=== PATIENT | female | born 1995 | race Caucasian/White ===

== ENCOUNTER 2018-10-03 09:29 | Emergency (ER) | payer OTHER ==
[2018-10-03 09:35] VITALS: RESP 18; TEMP 97.4
[2018-10-03] MEDS ORDERED: ONDANSETRON 4 MG/2 ML VIAL IVP STA (09:48)
[2018-10-03] MEDS ORDERED: SODIUM CHLORIDE 0.9% 1,000 ML IV STA (09:48)
[2018-10-03] MEDS ORDERED: KETOROLAC 30 MG/ML 1 ML VIAL IVP STA (09:48)
--- NOTE | 2018-10-03 10:00 | ED ---
General Adult HPI - General Chief complaint: Back Pain/Injury Stated complaint: back pain, nausea, pain in rt leg Time Seen by Provider: 10/03/18 09:37 Source: patient, RN notes reviewed Mode of arrival: ambulatory Limitations: no limitations - History of Present Illness Initial comments: The patient 22-year-old female presented to the emergency room today with chief complaint of right-sided lower back pain over the last 3 days. She does not that she's had some numbness tingling sensation going down into the thighs both on left right. She denies bowel or bladder incontinence retention. Denies any saddle anesthesia. Patient does admit that she has had some abdominal discomfort on the right side this morning and felt nauseous when she was getting ready this morning. She has mid to an episode of vomiting. Denies any signs of blood. Patient admits to history scoliosis is had some back problems in the past. States this does feel a little bit different. Pain is located on the right side of the lower back with some radiation around to the abdomen that started swallowing. Patient denies any other complaints or symptoms at this time. Patient denies any recent fever, chills, shortness of breath, chest pain, numbness or tingling, dysuria or hematuria, constipation or diarrhea, headaches or visual changes, or any other complaints. - Related Data Home Medications Medication Instructions Recorded Confirmed Acetaminophen [Tylenol Extra 500 mg PO Q6H PRN 10/03/18 10/03/18 Strength] Previous Rx's Medication Instructions Recorded Ibuprofen [Motrin] 800 mg PO Q6HR #30 tab 10/03/18 Ondansetron Odt [Zofran ODT] 4 mg PO Q8HR PRN #20 tab 10/03/18 Tamsulosin [Flomax] 0.4 mg PO DAILY #10 cap 10/03/18 Allergies Allergy/AdvReac Type Severity Reaction Status Date / Time No Known Allergies Allergy Verified 10/03/18 09:43 Review of Systems ROS Statement: Those systems with pertinent positive or pertinent negative responses have been documented in the HPI. ROS Other: All systems not noted in ROS Statement are negative. Past Medical History Past Medical History: No Reported History History of Any Multi-Drug Resistant Organisms: None Reported Past Surgical History: Back Surgery Past Psychological History: No Psychological Hx Reported Smoking Status: Never smoker Past Alcohol Use History: None Reported Past Drug Use History: None Reported General Exam - General Exam Comments Initial Comments: General: The patient is awake and alert, in no distress, and does not appear acutely ill. Eye: There is normal conjunctiva bilaterally. No signs of icterus. Ears, nose, mouth and throat: There are moist mucous membranes and no oral lesions. Neck: The neck is supple, there is no tenderness or JVD. Cardiovascular: There is a regular rate and rhythm. No murmur, rub or gallop is appreciated. Respiratory: Lungs are clear to auscultation, respirations are non-labored, breath sounds are equal. No wheezes, stridor, rales, or rhonchi. Gastrointestinal: Abdomen soft on palpation. Mild tenderness right lower shirley drant. No rebound, guarding or CVA tenderness. Musculoskeletal: Normal ROM, no tenderness. Strength 5/5. Sensation intact. Pulses equal bilaterally 2+. Neurological: A&O x 3. CN II-XII intact, There are no obvious motor or sensory deficits. Coordination appears grossly intact. Speech is normal. Skin: Skin is warm and dry and no rashes or lesions are noted. Psychiatric: Cooperative, appropriate mood & affect, normal judgment. Limitations: no limitations Course Vital Signs 10/03/18 09:32 Temperature 97.4 F L Pulse Rate 108 H Respiratory 18 Rate Blood Pressure 125/76 O2 Sat by Pulse 100 Oximetry Medical Decision Making - Medical Decision Making Patient reexamined at this time shows no signs of distress. She is resting comfortable. Does admit to improvement after medications given here in emergency room. Patient's labs are been reviewed. Urinalysis does show hematuria. No sign of infection. Patient's CT of the abdomen and pelvis is reviewed and does show 5 mm stone right UVJ. Results were discussed with the patient. Patient at this time is doing well. No fever. Will be discharged home with Flomax, pain medication, nausea medication for symptoms. She is advised following up with the family physician or urologist over the next 2 days. Advised to return here to emergency room if any symptoms increase or worsen. Patient states understanding and is in agreement. - Lab Data Result diagrams: 10/03/18 09:54 10/03/18 09:54 Lab Results 10/03/18 10/03/18 10/03/18 Range/Units 09:54 09:54 10:45 WBC 10.1 (3.8-10.6) k/uL RBC 4.44 (3.80-5.40) m/uL Hgb 13.4 (11.4-16.0) gm/dL Hct 39.3 (34.0-46.0) % MCV 88.7 (80.0-100.0) fL MCH 30.1 (25.0-35.0) pg MCHC 34.0 (31.0-37.0) g/dL RDW 12.6 (11.5-15.5) % Plt Count 289 (150-450) k/uL Neutrophils % 75 % Lymphocytes % 17 % Monocytes % 6 % Eosinophils % 1 % Basophils % 0 % Neutrophils # 7.6 (1.3-7.7) k/uL Lymphocytes # 1.7 (1.0-4.8) k/uL Monocytes # 0.6 (0-1.0) k/uL Eosinophils # 0.1 (0-0.7) k/uL Basophils # 0.0 (0-0.2) k/uL Sodium 141 (137-145) mmol/L Potassium 3.7 (3.5-5.1) mmol/L Chloride 111 H (98-107) mmol/L Carbon Dioxide 20 L (22-30) mmol/L Anion Gap 10 mmol/L BUN 13 (7-17) mg/dL Creatinine 0.55 (0.52-1.04) mg/dL Est GFR (CKD-EPI)AfAm >90 (>60 ml/min/1.73 sqM) Est GFR (CKD-EPI)NonAf >90 (>60 ml/min/1.73 sqM) Glucose 94 (74-99) mg/dL Calcium 9.6 (8.4-10.2) mg/dL Total Bilirubin 0.5 (0.2-1.3) mg/dL AST 22 (14-36) U/L ALT 39 (9-52) U/L Alkaline Phosphatase 106 (38-126) U/L Total Protein 7.4 (6.3-8.2) g/dL Albumin 4.6 (3.5-5.0) g/dL Amylase 71 (30-110) U/L Lipase 50 (23-300) U/L Urine Color Urine Appearance (Clear) Urine pH (5.0-8.0) Ur Specific [place] (1.001-1.035) Urine Protein (Negative) Urine Glucose (UA) (Negative) Urine Ketones (Negative) Urine Blood (Negative) Urine Nitrite (Negative) Urine Bilirubin (Negative) Urine Urobilinogen (<2.0) mg/dL Ur Leukocyte Esterase (Negative) Urine RBC (0-5) /hpf Urine WBC (0-5) /hpf Ur Squamous Epith Cells (0-4) /hpf Urine Mucus (None) /hpf Urine HCG, Qual Not Detected (Not Detectd) 10/03/18 Range/Units 10:45 WBC (3.8-10.6) k/uL RBC (3.80-5.40) m/uL Hgb (11.4-16.0) gm/dL Hct (34.0-46.0) % MCV (80.0-100.0) fL MCH (25.0-35.0) pg MCHC (31.0-37.0) g/dL RDW (11.5-15.5) % Plt Count (150-450) k/uL Neutrophils % % Lymphocytes % % Monocytes % % Eosinophils % % Basophils % % Neutrophils # (1.3-7.7) k/uL Lymphocytes # (1.0-4.8) k/uL Monocytes # (0-1.0) k/uL Eosinophils # (0-0.7) k/uL Basophils # (0-0.2) k/uL Sodium (137-145) mmol/L Potassium (3.5-5.1) mmol/L Chloride (98-107) mmol/L Carbon Dioxide (22-30) mmol/L Anion Gap mmol/L BUN (7-17) mg/dL Creatinine (0.52-1.04) mg/dL Est GFR (CKD-EPI)AfAm (>60 ml/min/1.73 sqM) Est GFR (CKD-EPI)NonAf (>60 ml/min/1.73 sqM) Glucose (74-99) mg/dL Calcium (8.4-10.2) mg/dL Total Bilirubin (0.2-1.3) mg/dL AST (14-36) U/L ALT (9-52) U/L Alkaline Phosphatase (38-126) U/L Total Protein (6.3-8.2) g/dL Albumin (3.5-5.0) g/dL Amylase (30-110) U/L Lipase (23-300) U/L Urine Color Yellow Urine Appearance Clear (Clear) Urine pH 6.5 (5.0-8.0) Ur Specific [place] 1.017 (1.001-1.035) Urine Protein Negative (Negative) Urine Glucose (UA) Negative (Negative) Urine Ketones 2+ H (Negative) Urine Blood Moderate H (Negative) Urine Nitrite Negative (Negative) Urine Bilirubin Negative (Negative) Urine Urobilinogen <2.0 (<2.0) mg/dL Ur Leukocyte Esterase Negative (Negative) Urine RBC 163 H (0-5) /hpf Urine WBC 2 (0-5) /hpf Ur Squamous Epith Cells 2 (0-4) /hpf Urine Mucus Few H (None) /hpf Urine HCG, Qual (Not Detectd) Disposition Clinical Impression: Kidney stone on right side Disposition: HOME SELF-CARE Condition: Good Instructions (If sedation given, give patient instructions): Kidney Stones (ED) Additional Instructions: Please use medication as discussed. Please follow-up with urologist/family doctor in the next 2 days of symptoms have not improved. Please return to emergency room if the symptoms increase or worsen or for any other concerns. Prescriptions: Tamsulosin [Flomax] 0.4 mg PO DAILY #10 cap Ibuprofen [Motrin] 800 mg PO Q6HR #30 tab Ondansetron Odt [Zofran ODT] 4 mg PO Q8HR PRN #20 tab PRN Reason: Nausea Is patient prescribed a controlled substance at d/c from ED?: No Referrals: None,Stated [Primary Care Provider] - 1-2 days Fede Dumas MD [STAFF PHYSICIAN] - 1-2 days Time of Disposition: 12:32
[2018-10-03 10:03] LABS: Basophils % (A) 0 %; Eosinophils # (A) 0.1 k/uL (0-0.7); Eosinophils % (A) 1 %; HCT 39.3 % (34.0-46.0); HGB 13.4 gm/dL (11.4-16.0); Lymphocytes # (A) 1.7 k/uL (1.0-4.8); Lymphocytes % (A) 17 %; MCH 30.1 pg (25.0-35.0); MCV 88.7 fL (80.0-100.0); Mean Platelet Volume 7.4; Monocytes # (A) 0.6 k/uL (0-1.0); Monocytes % (A) 6 %; Neutrophils # (A) 7.6 k/uL (1.3-7.7); Neutrophils % (A) 75 %; Platelet Count 289 k/uL (150-450); RBC 4.44 m/uL (3.80-5.40); RDW 12.6 % (11.5-15.5); WBC 10.1 k/uL (3.8-10.6)
[2018-10-03 10:21] LABS: ALT 39 U/L (9-52); AST 22 U/L (14-36); Albumin 4.6 g/dL (3.5-5.0); Alkaline Phosphatase 106 U/L (38-126); Amylase 71 U/L (30-110); Anion Gap 10 mmol/L; Blood Urea Nitrogen 13 mg/dL (7-17); Calcium 9.6 mg/dL (8.4-10.2); Carbon Dioxide 20 mmol/L (22-30); Chloride 111 mmol/L (98-107); Glucose 94 mg/dL (74-99); Lipase 50 U/L (23-300); Potassium 3.7 mmol/L (3.5-5.1); Sodium 141 mmol/L (137-145); Total Bilirubin 0.5 mg/dL (0.2-1.3); Total Protein 7.4 g/dL (6.3-8.2)
[2018-10-03 11:07] LABS: Appearance,Urine Clear (Clear); Bilirubin,Urine Negative (Negative); Blood,Urine Moderate (Negative); Color,Urine Yellow; Glucose,Urine (UA) Negative (Negative); Ketones,Urine 2+ (Negative); Leukocyte Esterase,Urine Negative (Negative); Mucus,Urine Few /hpf; Nitrite,Urine Negative (Negative); PH, Urine 6.5 (5.0-8.0); Protein,Urine Negative (Negative); RBC,Urine 163 /hpf (0-5); Specific Gravity,Urine 1.017 (1.001-1.035); Squamous Epithelial Cell,Urine 2 /hpf (0-4); Urobilinogen,Urine <2.0 mg/dL (<2.0); WBC,Urine 2 /hpf (0-5)
--- NOTE | 2018-10-03 11:26 | XR ---
EXAMINATION TYPE: XR KUB DATE OF EXAM: 10/03/2018 CLINICAL DATA: 22 year-old female with abdominal pain, PHH COMPARISON: None FINDINGS: Lung bases are clear. No evidence for free intraperitoneal air. No dilated small bowel or air-fluid levels. Scattered air and stool seen throughout the colon extendi ng distally into the rectum. Mild overall stool burden. Subtle 3 mm calcification in the right side of the pelvis. Thoracolumbar fusion hardware is present. IMPRESSION: 1. No evidence of bowel obstruction or free intraperitoneal air. 2. Subtle 3 mm calcification in the right side of the pelvis. Finding is equivocal for phlebolith eh jamila distal ureteral calculus. Correlate for any renal colic.
--- NOTE | 2018-10-03 12:23 | CT ---
EXAMINATION TYPE: CT abdomen pelvis wo con DATE OF EXAM: 10/03/2018 COMPARISON: Radiograph same day HISTORY: 22-year-old female Rt flank pain, hematuria CT DLP: 280.1 mGycm. Automated exposure control for dose reduction was used. TECHNIQUE: Contiguous axial scanning of the abdomen and pelvis without IV contrast. Coronal and sagit roopa reconstructions performed. FINDINGS: The superior aspect of the liver and spleen are excluded. Extensive metal artifact from the patient's thoracospinal fusion hardware. A few scattered punctate calcifications are present on the right measuring up to 3 mm. 2 punctate 1 t o 2 mm calculi are present on the left There is very mild asymmetric pelvocaliectasis on the right. Detailed assessment limited due to exten sive metal artifact at the level of the kidneys. No obvious abnormality of the liver, gallbladder, adrenal glands, spleen, or pancreas by noncontrast CT and further limitations due to extensive metal hardware artifact. No dilated small bowel, free fluid, or free air. Normal appendix. No significant stool burden. Mild circumferential bladder wall thickening. Uterus and ovaries are visualized with follicular change. There is a 1.6 cm dominant functional cyst in the left ovary. Mild to moderate cul-de-sac free fluid likely physiologic. There is a 5 mm calculus at the right UVJ. Bones: Thoracolumbar fusion hardware extending down to the L2 level. IMPRESSION: 1. A 5 mm calculus at the right UVJ. Suspect slight obstructive uropathy given asymmetric prominence to the right collecting system. 2. Extensive metal hardware artifact limiting visualization the kidneys. Scattered punctate 1 to 3 mm right lateral nonobstructive renal calculi are present. 3. Circumferential bladder wall thickening. Correlate to exclude cystitis.
[2018-10-03 12:45] VITALS: BP 120/76; PULSE 105
== END 2018-10-03 12:35 | disposition home or self-care (01) ==
LOC: EC 09:29
DX: N20.2 Calculus of kidney with calculus of ureter (principal); Z87.39 Personal history of other diseases of the musculoskeletal system and connective tissue; Z98.890 Other specified postprocedural states
CPT/HCPCS: 36415; 80053; 82150; 83690; 85025; 81001; 81025; 74018; 74176; 99284; 96374; 96375; 96361; J2405; J1885

== ENCOUNTER 2021-08-27 16:33 | Emergency (ER) | payer OTHER ==
[2021-08-27 17:03] VITALS: RESP 18
[2021-08-27] MEDS ORDERED: SODIUM CHLORIDE 0.9% 1,000 ML IV STA (19:10)
[2021-08-27] MEDS ORDERED: ONDANSETRON 4 MG/2 ML VIAL IVP STA (19:10)
--- NOTE | 2021-08-27 19:15 | ED ---
General Adult HPI - General Chief complaint: Nausea/Vomiting/Diarrhea Stated complaint: Abd pain/Cramps Time Seen by Provider: 08/27/21 18:41 Source: patient, RN notes reviewed Mode of arrival: wheelchair Limitations: no limitations - History of Present Illness Initial comments: 21-year-old female presents to the emergency Department with complaints of nausea, vomiting and abdominal pain, onset 1 hour prior to arrival. Patient states abdominal pain spreads across her entire abdomen and wraps around to the left flank. States she is currently on her menstrual period, but is not experiencing any cramping or excessive bleeding. Has had a few episodes of diarrhea today. She did not take anything to treat her symptoms prior to arrival. Denies any known sick contacts. No fever, chills, headache, chest pain, shortness of breath, constipation, dysuria, or hematuria. - Related Data Previous Rx's Medication Instructions Recorded Ibuprofen [Motrin] 600 mg PO Q8HR PRN #20 tab 08/27/21 Ondansetron Odt [Zofran Odt] 4 mg PO Q8HR PRN #10 tab 08/27/21 Tamsulosin [Flomax] 0.4 mg PO DAILY #7 cap 08/27/21 Allergies Allergy/AdvReac Type Severity Reaction Status Date / Time No Known Allergies Allergy Verified 08/27/21 21:39 Review of Systems ROS Statement: Those systems with pertinent positive or pertinent negative responses have been documented in the HPI. ROS Other: All systems not noted in ROS Statement are negative. Past Medical History Past Medical History: No Reported History History of Any Multi-Drug Resistant Organisms: None Reported Past Surgical History: Back Surgery Past Psychological History: No Psychological Hx Reported Smoking Status: Never smoker Past Alcohol Use History: None Reported Past Drug Use History: None Reported General Exam Limitations: no limitations (Well-developed, very slender female in no acute distress. Initial temperature 98.2, pulse 106, respirations 18, blood pressure 107/75, pulse ox 100% on room air.) General appearance: alert, in no apparent distress Eye exam: Present: normal appearance, PERRL, EOMI. Absent: scleral icterus, conjunctival injection ENT exam: Present: normal exam, normal oropharynx, mucous membranes moist Neck exam: Present: normal inspection, full ROM. Absent: tenderness, lymphadenopathy Respiratory exam: Present: normal lung sounds bilaterally. Absent: respiratory distress, wheezes, rales, rhonchi, stridor Cardiovascular Exam: Present: normal rhythm, tachycardia, normal heart sounds GI/Abdominal exam: Present: soft, tenderness (Diffuse lower abdominal tenderness, left side worse than right), normal bowel sounds. Absent: distended, guarding, rebound, rigid Back exam: Present: CVA tenderness (L) Neurological exam: Present: alert, oriented X3 Psychiatric exam: Present: normal affect, normal mood Skin exam: Present: warm, dry, intact, normal color Course Vital Signs 08/27/21 08/27/21 16:58 22:15 Temperature 98.2 F 99.3 F Pulse Rate 106 H 110 H Respiratory 18 18 Rate Blood Pressure 107/75 139/65 O2 Sat by Pulse 100 98 Oximetry - Reevaluation(s) Reevaluation #1: 08/27/21 20:30 Upon reevaluation, patient is resting more comfortably. Pain is significantly improved and nausea has resolved. Discussed CT of the abdomen and pelvis with patient and spouse, they are agreeable with this plan of care. Medical Decision Making - Medical Decision Making 25-year-old female with a past medical history of kidney stones presents to the emergency Department with complaints of abdominal pain radiating to the left flank. Upon exam, patient is alert and oriented and able to answer questions appropriately. She is resting calmly in the bed at this time. She is noted to have vomited recently. Complains of significant lower abdominal discomfort that wraps around to the left flank. Denies any hematuria. States she is currently on her menstrual period. Patient was given IV fluids, pain medicine, antinausea medicine with significant improvement. Laboratory studies were reviewed showing leukocytosis which is likely due to vomiting. Her lactic acid is 2.1 and was given a bolus of fluid. Urinalysis shows presence of moderate amount of blood and 2+ ketones; no evidence of infection. CT of the abdomen and pelvis was obtained showing the presence of bilateral renal calculi, with a 4 mm stone on the left side causing mild hydronephrosis. Patient's pain is controlled and she is tolerating oral intake. She will be discharged home to follow up on an outpatient basis. Prescribed Zofran, Motrin, and Flomax. She is provided with a strainer and instructed to follow up with PCP and/or urology. Instructed to focus on hydration including electrolyte solution. Return parameters were discussed in detail. Patient verbalizes understanding and agrees with this plan. This patient's care was discussed with my attending Dr. George. - Lab Data Result diagrams: 08/27/21 19:16 08/27/21 19:16 Lab Results 08/27/21 08/27/21 08/27/21 Range/Units 19:16 19:16 19:16 WBC 16.9 H (3.8-10.6) k/uL RBC 4.30 (3.80-5.40) m/uL Hgb 13.9 (11.4-16.0) gm/dL Hct 40.8 (34.0-46.0) % MCV 94.8 (80.0-100.0) fL MCH 32.3 (25.0-35.0) pg MCHC 34.1 (31.0-37.0) g/dL RDW 12.1 (11.5-15.5) % Plt Count 308 (150-450) k/uL MPV 9.2 Neutrophils % 89 % Lymphocytes % 6 % Monocytes % 4 % Eosinophils % 0 % Basophils % 0 % Neutrophils # 15.1 H (1.3-7.7) k/uL Lymphocytes # 1.0 (1.0-4.8) k/uL Monocytes # 0.6 (0-1.0) k/uL Eosinophils # 0.0 (0-0.7) k/uL Basophils # 0.1 (0-0.2) k/uL Sodium (137-145) mmol/L Potassium (3.5-5.1) mmol/L Chloride (98-107) mmol/L Carbon Dioxide (22-30) mmol/L Anion Gap mmol/L BUN (7-17) mg/dL Creatinine (0.52-1.04) mg/dL Est GFR (CKD-EPI)AfAm (>60 ml/min/1.73 sqM) Est GFR (CKD-EPI)NonAf (>60 ml/min/1.73 sqM) Glucose (74-99) mg/dL Lactic Ac Sepsis Rflx Plasma Lactic Acid Jones (0.7-2.0) mmol/L Calcium (8.4-10.2) mg/dL Total Bilirubin (0.2-1.3) mg/dL AST (14-36) U/L ALT (4-34) U/L Alkaline Phosphatase (38-126) U/L Total Protein (6.3-8.2) g/dL Albumin (3.5-5.0) g/dL Urine Color Yellow Urine Appearance Clear (Clear) Urine pH 7.5 (5.0-8.0) Ur Specific [place] 1.022 (1.001-1.035) Urine Protein Trace H (Negative) Urine Glucose (UA) Negative (Negative) Urine Ketones 2+ H (Negative) Urine Blood Moderate H (Negative) Urine Nitrite Negative (Negative) Urine Bilirubin Negative (Negative) Urine Urobilinogen <2.0 (<2.0) mg/dL Ur Leukocyte Esterase Negative (Negative) Urine RBC 133 H (0-5) /hpf Urine WBC 2 (0-5) /hpf Ur Squamous Epith Cells 2 (0-4) /hpf Urine Mucus Few H (None) /hpf Urine HCG, Qual Not Detected (Not Detectd) 08/27/21 08/27/21 08/27/21 Range/Units 19:16 19:16 19:50 WBC (3.8-10.6) k/uL RBC (3.80-5.40) m/uL Hgb (11.4-16.0) gm/dL Hct (34.0-46.0) % MCV (80.0-100.0) fL MCH (25.0-35.0) pg MCHC (31.0-37.0) g/dL RDW (11.5-15.5) % Plt Count (150-450) k/uL MPV Neutrophils % % Lymphocytes % % Monocytes % % Eosinophils % % Basophils % % Neutrophils # (1.3-7.7) k/uL Lymphocytes # (1.0-4.8) k/uL Monocytes # (0-1.0) k/uL Eosinophils # (0-0.7) k/uL Basophils # (0-0.2) k/uL Sodium 138 (137-145) mmol/L Potassium 4.2 (3.5-5.1) mmol/L Chloride 105 (98-107) mmol/L Carbon Dioxide 21 L (22-30) mmol/L Anion Gap 12 mmol/L BUN 15 (7-17) mg/dL Creatinine 0.62 (0.52-1.04) mg/dL Est GFR (CKD-EPI)AfAm >90 (>60 ml/min/1.73 sqM) Est GFR (CKD-EPI)NonAf >90 (>60 ml/min/1.73 sqM) Glucose 113 H (74-99) mg/dL Lactic Ac Sepsis Rflx Y Plasma Lactic Acid Jones 2.1 H* (0.7-2.0) mmol/L Calcium 9.4 (8.4-10.2) mg/dL Total Bilirubin 0.6 (0.2-1.3) mg/dL AST 35 (14-36) U/L ALT 38 H (4-34) U/L Alkaline Phosphatase 122 (38-126) U/L Total Protein 8.4 H (6.3-8.2) g/dL Albumin 4.9 (3.5-5.0) g/dL Urine Color Urine Appearance (Clear) Urine pH (5.0-8.0) Ur Specific [place] (1.001-1.035) Urine Protein (Negative) Urine Glucose (UA) (Negative) Urine Ketones (Negative) Urine Blood (Negative) Urine Nitrite (Negative) Urine Bilirubin (Negative) Urine Urobilinogen (<2.0) mg/dL Ur Leukocyte Esterase (Negative) Urine RBC (0-5) /hpf Urine WBC (0-5) /hpf Ur Squamous Epith Cells (0-4) /hpf Urine Mucus (None) /hpf Urine HCG, Qual (Not Detectd) - Radiology Data Radiology results: report reviewed, image reviewed CT of the abdomen and pelvis without contrast was obtained. Report was reviewed in its entirety. Impression per Dr. Sheth is bilateral multiple renal calculi. Small calculus at the left ureterovesical junction measures 3 mm. Mild left-sided hydronephrosis. Obstruction appears new compared to old exam. There is clearing of the fluid in the pelvis compared to old exam. Disposition Clinical Impression: Renal calculi, Nausea and vomiting Disposition: HOME SELF-CARE Condition: Stable Instructions (If sedation given, give patient instructions): Kidney Stones (ED), Acute Nausea and Vomiting (ED) Additional Instructions: Take Motrin if needed for pain. Zofran is for nausea. Flomax is given to help the kidney stone pass. Strain your urine and collect stone. Increase intake of fluids. Consider an electrolyte solution such as Gatorade or Powerade. Follow-up with urology for further evaluation and treatment. Return to the emergency department with any new, worsening, or concerning symptoms. Prescriptions: Tamsulosin [Flomax] 0.4 mg PO DAILY #7 cap Ibuprofen [Motrin] 600 mg PO Q8HR PRN #20 tab PRN Reason: Pain Ondansetron Odt [Zofran Odt] 4 mg PO Q8HR PRN #10 tab PRN Reason: Nausea Is patient prescribed a controlled substance at d/c from ED?: No Referrals: None,Stated [Primary Care Provider] - 1-2 days Time of Disposition: 21:58
[2021-08-27 19:45] LABS: Basophils # (A) 0.1 k/uL (0-0.2); Basophils % (A) 0 %; Eosinophils % (A) 0 %; HCT 40.8 % (34.0-46.0); HGB 13.9 gm/dL (11.4-16.0); Lymphocytes % (A) 6 %; MCH 32.3 pg (25.0-35.0); MCHC 34.1 g/dL (31.0-37.0); MCV 94.8 fL (80.0-100.0); Mean Platelet Volume 9.2; Monocytes # (A) 0.6 k/uL (0-1.0); Monocytes % (A) 4 %; Neutrophils # (A) 15.1 k/uL (1.3-7.7); Neutrophils % (A) 89 %; Platelet Count 308 k/uL (150-450); RDW 12.1 % (11.5-15.5); WBC 16.9 k/uL (3.8-10.6)
[2021-08-27 19:47] LABS: Appearance,Urine Clear (Clear); Bilirubin,Urine Negative (Negative); Blood,Urine Moderate (Negative); Color,Urine Yellow; Glucose,Urine (UA) Negative (Negative); Ketones,Urine 2+ (Negative); Leukocyte Esterase,Urine Negative (Negative); Mucus,Urine Few /hpf; Nitrite,Urine Negative (Negative); PH, Urine 7.5 (5.0-8.0); Protein,Urine Trace (Negative); RBC,Urine 133 /hpf (0-5); Specific Gravity,Urine 1.022 (1.001-1.035); Squamous Epithelial Cell,Urine 2 /hpf (0-4); Urobilinogen,Urine <2.0 mg/dL (<2.0); WBC,Urine 2 /hpf (0-5)
[2021-08-27] MEDS ORDERED: KETOROLAC 15 MG/ML 1 ML VIAL IVP STA (19:51)
[2021-08-27 19:55] LABS: ALT 38 U/L (4-34); AST 35 U/L (14-36); African American GFR (CKD) >90 (>60 ml/min/1.73 sqM); Albumin 4.9 g/dL (3.5-5.0); Alkaline Phosphatase 122 U/L (38-126); Anion Gap 12 mmol/L; Blood Urea Nitrogen 15 mg/dL (7-17); Calcium 9.4 mg/dL (8.4-10.2); Carbon Dioxide 21 mmol/L (22-30); Chloride 105 mmol/L (98-107); Glucose 113 mg/dL (74-99); Non-African American GFR(CKD) >90 (>60 ml/min/1.73 sqM); Potassium 4.2 mmol/L (3.5-5.1); Sodium 138 mmol/L (137-145); Total Bilirubin 0.6 mg/dL (0.2-1.3); Total Protein 8.4 g/dL (6.3-8.2)
--- NOTE | 2021-08-27 21:18 | CT ---
EXAMINATION TYPE: CT abdomen pelvis wo con DATE OF EXAM: 08/27/2021 COMPARISON: 10/03/2018 HISTORY: Left sided flank/abdominal pain. CT DLP: 291.3 mGycm Automated exposure control for dose reduction was used. Images obtained from the diaphragm to the floor the pelvis without contrast. There is paraspinal rods stabilizing the thoracolumbar junction. Lung bases are clear of infiltrate. There is no pleural effusion. Heart size is normal. There is no pericardial effusion. Liver spleen stomach appear intact. The bile ducts are not dilated. There is no sign of pancreatic ma ss. Gallbladder appears normal. There is no adrenal mass. Kidneys are obscured by metal artifact. There appears to be tiny calculi in the left kidney. There is 4 mm calculus lower pole right kidney. There are smaller calculi in the in terpolar and upper pole right kidney. There is some fullness of the left renal pelvis and left ureter . There appears to be at calculus at the left ureterovesical junction on image 100. Bladder distends smoothly. There is no internal hernia. No free fluid in the pelvis. Appendix is inferior and appears normal. The bony pelvis is intact. Hip joints are intact. The lumbar spine is intact. No evidence of any significant compression deformity. There is no mesenteric edema. There is no sign of a bowel obstruction. There is no evidence of free a ir. No ascites. IMPRESSION: Bilateral multiple renal calculi. Small calculus at the left ureterovesical junction measures 3 mm. Mild left-sided hydronephrosis. Obs truction appears new compared to old exam. There is clearing of the fluid in the pelvis compared to o ld exam.
[2021-08-27] MEDS ORDERED: IBUPROFEN 600 MG STARTER PACK 4 TAB BTL PO STA (21:53)
[2021-08-27] MEDS ORDERED: ONDANSETRON 4 MG ODT STARTER PACK 2 TAB BTL PO STA (21:53)
[2021-08-27] MEDS ORDERED: TAMSULOSIN 0.4 MG CAP.ER.24H PO STA (21:54)
[2021-08-27 22:31] VITALS: BP 139/65; PULSE 110; TEMP 99.3
== END 2021-08-27 22:20 | disposition home or self-care (01) ==
LOC: EC 16:33
DX: R11.2 Nausea with vomiting, unspecified (principal); N20.0 Calculus of kidney
CPT/HCPCS: 99284; 96374; 96375; 96361; 36415; 80053; 83605; 85025; 81001; 81025; 74176; J2405; J1885; S0119